=== PATIENT | female | born 1995 | race Caucasian/White ===

== ENCOUNTER 2021-03-13 22:41 | Emergency (ER) | payer OTHER ==
[~2021-03-13] VITALS: Ht 152.4 cm; Wt 96.6 kg
[2021-03-13 23:05] VITALS: BP 131/77
--- NOTE | 2021-03-13 23:05 | NUR ---
TO BED AMBULATORY
--- NOTE | 2021-03-13 23:18 | NUR ---
c/o vaginal bleeding today at 1900. patient 7 weeks and reports picking up daughter and cleaning the fridge when she felt the trickling of blood go down "bleeding like a period" with moderate amount of blood. patient has no pain. [id number]. AAOx4. VSS. pmh denies nka
[2021-03-14 01:04] LABS: BASOPHILS # (AUTO) 0.1 K/uL (0.00-0.22); BASOPHILS % (AUTO) 1.1 % (0.0-2.0); EOSINOPHILS # (AUTO) 0.3 K/uL (0-0.4); EOSINOPHILS % (AUTO) 2.7 % (0.0-4.0); HEMATOCRIT 37.7 % (36-48); HEMOGLOBIN 12.2 g/dL (12.0-16.0); LYMPHOCYTES # (AUTO) 2.3 K/uL (2.5-16.5); MEAN CORPUSCULAR HEMOGLOBIN 27 pg (27-31); MEAN CORPUSCULAR HGB CONC 33 g/dL (33-37); MEAN CORPUSCULAR VOLUME 84.1 fL (80-94); MONOCYTES # (AUTO) 1.1 K/uL (0.8-1.0); MONOCYTES % (AUTO) 8.8 % (1.7-9.3); NEUTROPHILS # (AUTO) 8.3 K/uL (1.8-7.7); NEUTROPHILS % (AUTO) 68.4 % (42.2-75.2); PLATELET COUNT (AUTO) 347 K/uL (140-450); RED BLOOD CELL COUNT(AUTO) 4.48 MIL/uL (4.20-5.40); RED CELL DISTRIBUTION WIDTH 14.4 % (11.6-13.7); WHITE BLOOD COUNT (AUTO) 12.2 K/uL (4.8-10.8)
[2021-03-14 01:06] LABS: APPEARANCE,URINE CLOUDY (CLEAR); BILIRUBIN,URINE NEGATIVE (NEGATIVE); BLOOD, URINE 3+ (NEGATIVE); COLOR,URINE RED (YELLOW); LEUKOCYTE ESTERASE ,URINE TRACE (NEGATIVE); NITRITE, URINE NEGATIVE (NEGATIVE); PH,URINE 6.5 (5.0-9.0); UGLUCOSE NEGATIVE (NEGATIVE)
[2021-03-14 01:11] LABS: ANION GAP 13.4 (8-16); CARBON DIOXIDE 26.4 mmol/L (21-32); CREATININE 0.6 mg/dL (0.6-1.3); POTASSIUM 3.8 mmol/L (3.5-5.1)
[2021-03-14 01:20] LABS: RBC,URINE TOO NUMEROUS TO COUN /HPF (0-5)
--- NOTE | 2021-03-14 01:37 | NUR ---
ULTRASOUND AT BEDSIDE
--- NOTE | 2021-03-14 02:52 | NUR ---
Patient appears to be resting comfortably in bed. Respirations even and unlabored. Safety measures are in place, will continue to monitor patient
[2021-03-14 04:49] VITALS: BP 131/85
--- NOTE | 2021-03-14 04:49 | NUR ---
Patient discharged with v/s stable. Written and verbal after care instructions given and explained. Patient verbalized understanding. Ambulatory with steady gait. ID band removed. All questions addressed prior to discharge. Advised to follow up with PMD.
== END 2021-03-14 04:49 | disposition home or self-care (01) ==
LOC: MED 22:41
DX: O20.8 Other hemorrhage in early pregnancy (principal)
CPT/HCPCS: 36415; 76801; 80048; 81001; 81025; 84702; 85025; 86900; 86901; 87086; 99284

== ENCOUNTER 2021-03-19 15:37 | Emergency (ER) | payer OTHER ==
[~2021-03-19] VITALS: Ht 156.2 cm; Wt 93.4 kg
[2021-03-19 16:06] VITALS: BP 122/81
--- NOTE | 2021-03-19 16:38 | NUR ---
PT AMBULATED TO BED 9
--- NOTE | 2021-03-19 16:47 | NUR ---
Geovanni sandoval in [facility] - 03/19/21 at 1650 by [email or web address] PT AMB TO ER BED 9
--- NOTE | 2021-03-19 16:50 | NUR ---
25 Y/O FEMALE C/O VAGINAL BLEEDING X 4 DAYS. PT WAS SEEN HERE FOR THREATENED MISCARRIGE 03/13/21. LMP 01/22, PT REPORTS ABNORMAL PERIODS. PT REPORTS 1 SATURATED PAD TODAY BUT REPORTS 3-4/DAY THE LAST COUPLE OF DAYS. A1. PT DENIES PAIN AT THIS TIME BUT REPORTS INTERMITTENT ABDOMINAL CRAMPING. PT DENIES N/V. PT A/O X4 WITH EVEN AND UNLABORED RESPIRATIONS PMH:DENIES NKDA
--- NOTE | 2021-03-19 17:01 | NUR ---
DR TODD AT BEDSIDE EVALUATING PT
--- NOTE | 2021-03-19 17:15 | NUR ---
Female Minister Helper accompanied female patient for Pelvic Exam.
--- NOTE | 2021-03-19 17:43 | NUR ---
US AT BEDSIDE
[2021-03-19 18:07] LABS: BASOPHILS # (AUTO) 0.1 K/uL (0.00-0.22); BASOPHILS % (AUTO) 1.1 % (0.0-2.0); EOSINOPHILS # (AUTO) 0.3 K/uL (0-0.4); EOSINOPHILS % (AUTO) 3.1 % (0.0-4.0); HEMATOCRIT 39.5 % (36-48); HEMOGLOBIN 12.8 g/dL (12.0-16.0); LYMPHOCYTES # (AUTO) 2.4 K/uL (2.5-16.5); LYMPHOCYTES % (AUTO) 26.1 % (20.5-51.1); MEAN CORPUSCULAR HEMOGLOBIN 27 pg (27-31); MEAN CORPUSCULAR HGB CONC 32 g/dL (33-37); MEAN CORPUSCULAR VOLUME 83.5 fL (80-94); MONOCYTES # (AUTO) 0.7 K/uL (0.8-1.0); MONOCYTES % (AUTO) 7.6 % (1.7-9.3); NEUTROPHILS # (AUTO) 5.7 K/uL (1.8-7.7); NEUTROPHILS % (AUTO) 62.1 % (42.2-75.2); PLATELET COUNT (AUTO) 380 K/uL (140-450); RED BLOOD CELL COUNT(AUTO) 4.73 MIL/uL (4.20-5.40); RED CELL DISTRIBUTION WIDTH 14.5 % (11.6-13.7); WHITE BLOOD COUNT (AUTO) 9.2 K/uL (4.8-10.8)
--- NOTE | 2021-03-19 18:30 | NUR ---
PT SITTING IN BED WITH EVEN AND UNLABORED RESPIRATIONS. PT GIVEN CUP OF WATER, AWAITING RESULTS.
--- NOTE | 2021-03-19 19:20 | NUR ---
Patient discharged with v/s stable. Written and verbal after care instructions ABOUT ABDOMINAL PAIN given and explained. Patient verbalized understanding. Ambulatory with steady gait. All questions addressed prior to discharge. Advised to follow up with PMD.
[2021-03-19 19:26] VITALS: BP 126/72
== END 2021-03-19 19:20 | disposition home or self-care (01) ==
LOC: MED 15:37
DX: J18.9 Pneumonia, unspecified organism (principal)
CPT/HCPCS: 36415; 76802; 81002; 81025; 84702; 85025; 99284